=== PATIENT | female | born 1985 | race African-American/Black ===

== ENCOUNTER 2016-10-06 09:42 | Emergency (ER) | payer OTHER ==
[~2016-10-06] VITALS: Ht 157.5 cm; Wt 74.8 kg
[~2016-10-06 09:42] MED LIST: ACETAMINOPHEN-1 EAC1 PO; ADDERALL 20 MG20 M1 PO; AMBIEN 5 MG TABL5 M1 PO; BACTRIM DS TAB1 EACH PO; CLARINEX-D 121 EACH PO; CLEOCIN HCL150 MG PO; CLEOCIN HCL300 MG PO; DELTASONE20 MG PO; DIPHENHIST50 MG PO; FLONASE 0.05%50 MCG NASAL; HYDROCHLOROTHIA25 M1 PO; HYDROCHLOROTHIA25 M2 PO; LEVAQUIN 500 M500 M6 PO; LEVAQUIN 500 M500 MG PO; LISINOPRIL20 MG PO; LYRICA 75 MG CA75 MG PO; MEDROLDOSEPACK PO; NAPROSYN500 MG PO; NEURONTIN 300300 M1 PO; NEURONTIN600 MG PO; NORCO 5-325 TA1 EACH PO; PERCOCET 5-3251 EACH PO; PRILOSEC 20 MG20 MG PO; TRAMADOL 50 MG50 MG PO; ZOFRAN ODT4 MG PO; ZOLOFT 50 MG TA50 M1 PO; ZOLOFT50 MG PO; ZPAK PO
[2016-10-06 09:50] VITALS: BP 112/52
[2016-10-06] MEDS ORDERED: SUBOXONE 2 MG-1 EAC1 BUCCAL (10:19)
[2016-10-06] MEDS ORDERED: IBUPROFEN 600600 M1 PO (10:27)
[2016-10-06] MEDS ORDERED: FLONASE 0.05%50 MCG NASAL (10:31)
[2016-10-06] MEDS ORDERED: CLARITIN10 MG PO (10:31)
== END 2016-10-06 10:37 | disposition home or self-care (01) ==
LOC: ER 09:42
DX: J30.2 Other seasonal allergic rhinitis (principal); J32.8 Other chronic sinusitis; I10 Essential (primary) hypertension; M32.9 Systemic lupus erythematosus, unspecified; F17.210 Nicotine dependence, cigarettes, uncomplicated; Z88.0 Allergy status to penicillin

== ENCOUNTER 2016-10-24 09:02 | Emergency (ER) | payer OTHER ==
[~2016-10-24] VITALS: Ht 160 cm; Wt 77.1 kg
[~2016-10-24 09:02] MED LIST changes: +CLARITIN10 MG PO; +IBUPROFEN 600600 M1 PO; +SUBOXONE 2 MG-1 EAC1 BUCCAL
[2016-10-24 09:05] VITALS: BP 116/80
[2016-10-24] MEDS ORDERED: PEPCID20 MG PO (09:28)
[2016-10-24] MEDS ORDERED: ELIMITE60 GM TP (09:28)
== END 2016-10-24 09:36 | disposition home or self-care (01) ==
LOC: ER 09:02
DX: L29.9 Pruritus, unspecified (principal); I10 Essential (primary) hypertension; M32.9 Systemic lupus erythematosus, unspecified; F17.210 Nicotine dependence, cigarettes, uncomplicated; Z88.0 Allergy status to penicillin

== ENCOUNTER 2016-12-27 02:43 | Emergency (ER) | payer OTHER ==
[~2016-12-27] VITALS: Ht 157.5 cm; Wt 77.1 kg
[~2016-12-27 02:43] MED LIST changes: +ELIMITE60 GM TP; +PEPCID20 MG PO
[2016-12-27] MEDS ORDERED: LYRICA 50 MG50 MG (02:56)
[2016-12-27] MEDS ORDERED: APAP500 PO (02:57)
[2016-12-27] MEDS ORDERED: OMEPRAZOLE20 M2 PO (02:58)
[2016-12-27] MEDS ORDERED: CELEBREX50 MG (02:58)
[2016-12-27 03:37] LABS: URINE BILIRUBIN NEGATIVE (Negative); URINE BLOOD TRACE (Negative); URINE COLOR YELLOW; URINE GLUCOSE-RANDOM* NEGATIVE (Negative); URINE KETONES NEGATIVE (Negative); URINE LEUKOCYTES-REFLEX NEGATIVE (Negative); URINE PROTEIN (DIPSTICK) NEGATIVE (Negative); URINE UROBILINOGEN 0.2 E.U./dl (0.2-1.0)
[2016-12-27 04:07] LABS: ABSOLUTE NEUTROPHILS 3.8 thou/uL (1.4-8.2); BASOPHILS 0.8 % (0.0-2.0); EOSINOPHILS 0.8 % (0.0-3.0); HEMOGLOBIN 11.1 gm/dL (12.0-15.0); LYMPHOCYTES 45.8 % (24.0-44.0); MCH 29.1 pg (26.0-34.0); MCHC 33.6 g/dL (28.0-37.0); MCV 86.6 fL (80.0-100.0); MONOCYTES 6.4 % (1.0-8.0); PLATELET COUNT 350 thou/uL (150-400); POLYS 46.2 % (36.0-66.0); RBC 3.82 mil/uL (4.20-5.00); RDW 15.8 % (10.5-14.5); WBC 8.3 thou/uL (4.0-11.0)
[2016-12-27 04:09] LABS: MANUAL DIFF NO
[2016-12-27 04:13] LABS: ANION GAP 16 mmol/L (7-16); BUN 16 mg/dL (7-18); CALCIUM 9.8 mg/dL (8.5-10.1); CHLORIDE 103 mmol/L (98-107); CO2 20 mmol/L (21-32); CREATININE 1.2 mg/dL (0.6-1.0); GLUCOSE 103 mg/dL (74-106); POTASSIUM 3.6 mmol/L (3.5-5.1); SODIUM 139 mmol/L (136-145)
[2016-12-27 04:20] LABS: ALBUMIN 4.4 g/dL (3.4-5.0); ALKALINE PHOSPHATASE 71 U/L (46-116); DIRECT BILIRUBIN < 0.1 mg/dL (<0.1-0.3); SGOT 19 U/L (15-37); SGPT 30 U/L (30-65); TOTAL BILIRUBIN 0.4 mg/dL (<0.1-1.0); TOTAL PROTEIN 8.5 g/dL (6.4-8.2)
[2016-12-27 05:32] VITALS: BP 127/86
[2016-12-27] MEDS ORDERED: NORCO 5-325 TA1 EACH PO (07:07)
[2016-12-28 17:08] LABS: CHLAMYDIA TRACHOMATIS-PCR Negative (Negative); NEISSERIA GONORRHEA-PCR Negative (Negative)
== END 2016-12-27 07:45 | disposition home or self-care (01) ==
LOC: ER 02:43
PROVIDERS: Emergency Medicine
DX: R30.0 Dysuria (principal); R10.9 Unspecified abdominal pain; I10 Essential (primary) hypertension; M32.9 Systemic lupus erythematosus, unspecified; F17.210 Nicotine dependence, cigarettes, uncomplicated; Z87.448 Personal history of other diseases of urinary system; Z88.0 Allergy status to penicillin

== ENCOUNTER 2017-10-07 15:02 | Emergency (ER) | payer OTHER ==
[~2017-10-07] VITALS: Ht 157.5 cm; Wt 68.0 kg
[~2017-10-07 15:02] MED LIST changes: +APAP500 PO; +CELEBREX50 MG; +LYRICA 50 MG50 MG; +OMEPRAZOLE20 M2 PO
[2017-10-07 15:19] LABS: URINE BILIRUBIN NEGATIVE (Negative); URINE BLOOD NEGATIVE (Negative); URINE CLARITY CLEAR; URINE COLOR YELLOW; URINE GLUCOSE-RANDOM* NEGATIVE (Negative); URINE KETONES NEGATIVE (Negative); URINE LEUKOCYTES-REFLEX 1+ (Negative); URINE NITRITE-REFLEX NEGATIVE (Negative); URINE PROTEIN (DIPSTICK) NEGATIVE (Negative); URINE SPECIFIC GRAVITY 1.015 (1.005-1.035); URINE UROBILINOGEN 0.2 E.U./dl (0.2-1.0)
[2017-10-07 15:30] LABS: BACTERIA-REFLEX 1-9 Few /HPF (None Seen); CASTS None Seen /LPF (None Seen); CRYSTALS None Seen /LPF (None Seen); SQUAMOUS 4-10 Moderate /LPF (0-3); URINE RBC None Seen /HPF (0-2); URINE WBC-REFLEX 0-5 Rare /HPF (0-5)
[2017-10-07 15:49] LABS: ABSOLUTE NEUTROPHILS 3.1 thou/uL (1.4-8.2); BASOPHILS 1.1 % (0.0-2.0); EOSINOPHILS 2.4 % (0.0-3.0); HEMATOCRIT 32.9 % (37.0-47.0); HEMOGLOBIN 10.9 gm/dL (12.0-15.0); LYMPHOCYTES 28.5 % (24.0-44.0); MCHC 33.3 g/dL (28.0-37.0); MONOCYTES 8.5 % (1.0-8.0); PLATELET COUNT 226 thou/uL (150-400); POLYS 59.5 % (36.0-66.0); RBC 3.91 mil/uL (4.20-5.00); RDW 14.7 % (10.5-14.5); WBC 5.2 thou/uL (4.0-11.0)
[2017-10-07 15:57] LABS: CALCIUM 8.8 mg/dL (8.5-10.1); CREATININE 1.4 mg/dL (0.6-1.0); POTASSIUM 3.8 mmol/L (3.5-5.1)
[2017-10-07] MEDS ORDERED: MACROBID 100 M100 M1 PO (16:33)
[2017-10-07] MEDS ORDERED: IBUPROFEN 600600 M1 PO (16:34)
[2017-10-07 17:12] VITALS: BP 108/70
== END 2017-10-07 17:13 | disposition home or self-care (01) ==
LOC: ER 15:02
PROVIDERS: Emergency Medicine; Nurse Practitioner
DX: N39.0 Urinary tract infection, site not specified (principal); M32.9 Systemic lupus erythematosus, unspecified; I10 Essential (primary) hypertension; F17.210 Nicotine dependence, cigarettes, uncomplicated; Z88.0 Allergy status to penicillin

== ENCOUNTER 2017-10-29 21:45 | Emergency (ER) | payer OTHER ==
[~2017-10-29] VITALS: Ht 160 cm; Wt 74.8 kg
[~2017-10-29 21:45] MED LIST changes: +MACROBID 100 M100 M1 PO
[2017-10-29 22:08] LABS: URINE BLOOD TRACE (Negative); URINE CLARITY SL CLOUDY; URINE COLOR YELLOW; URINE GLUCOSE-RANDOM* NEGATIVE (Negative); URINE KETONES TRACE (Negative); URINE NITRITE-REFLEX NEGATIVE (Negative); URINE PROTEIN (DIPSTICK) 1+ (Negative); URINE SPECIFIC GRAVITY >= 1.030 (1.005-1.035); URINE UROBILINOGEN 0.2 E.U./dl (0.2-1.0)
[2017-10-29 22:09] LABS: ICTOTEST (BILI CONFIRMATORY) Negative (Negative); URINE BILIRUBIN NEGATIVE (Negative); URINE LEUKOCYTES-REFLEX 2+ (Negative)
[2017-10-29 22:17] LABS: CASTS None Seen /LPF (None Seen); CRYSTALS None Seen /LPF (None Seen); SQUAMOUS 4-10 Moderate /LPF (0-3)
[2017-10-29 22:18] LABS: URINE RBC 0-2 Rare /HPF (0-2); URINE WBC-REFLEX 6-15 Few /HPF (0-5); YEAST-REFLEX Present (None Seen)
[2017-10-29 22:56] LABS: AMP/METHAMP POSITIVE (Negative); BARBITURATES Negative (Negative); BENZODIAZEPINES Negative (Negative); COCAINE Negative (Negative); METHADONE Negative (Negative); OPIATES POSITIVE (Negative); PCP Negative (Negative)
[2017-10-29 23:39] LABS: ABSOLUTE NEUTROPHILS 3.6 thou/uL (1.4-8.2); BASOPHILS 0.9 % (0.0-2.0); EOSINOPHILS 0.8 % (0.0-3.0); HEMATOCRIT 41.5 % (37.0-47.0); HEMOGLOBIN 13.7 gm/dL (12.0-15.0); LYMPHOCYTES 42.2 % (24.0-44.0); MCH 27.7 pg (26.0-34.0); MCV 83.9 fL (80.0-100.0); PLATELET COUNT 332 thou/uL (150-400); POLYS 51.1 % (36.0-66.0); RBC 4.95 mil/uL (4.20-5.00); RDW 15.5 % (10.5-14.5); WBC 7.1 thou/uL (4.0-11.0)
[2017-10-29] MEDS ORDERED: NAPROSYN500 MG PO (23:49)
[2017-10-29] MEDS ORDERED: MACROBID 100 M100 M1 PO (23:49)
[2017-10-29 23:50] LABS: ANION GAP 14 mmol/L (7-16); BUN 38 mg/dL (7-18); CALCIUM 9.2 mg/dL (8.5-10.1); CHLORIDE 99 mmol/L (98-107); CO2 21 mmol/L (21-32); GLUCOSE 83 mg/dL (74-106); POTASSIUM 4.2 mmol/L (3.5-5.1); SODIUM 134 mmol/L (136-145)
[2017-10-29 23:55] LABS: MAGNESIUM 2.5 mg/dL (1.8-2.4); PHOSPHORUS 4.6 mg/dL (2.5-4.9)
[2017-10-29 23:56] LABS: ALBUMIN 4.2 g/dL (3.4-5.0); LIPASE 126 U/L (73-393); SGOT 21 U/L (15-37); SGPT 22 U/L (30-65); TOTAL BILIRUBIN 0.3 mg/dL (<0.1-1.0); TOTAL PROTEIN 8.5 g/dL (6.4-8.2)
[2017-10-30 00:07] VITALS: BP 93/56
== END 2017-10-30 00:08 | disposition home or self-care (01) ==
LOC: ER 21:45
PROVIDERS: Emergency Medicine; Physician Assistant
DX: N39.0 Urinary tract infection, site not specified (principal); R10.9 Unspecified abdominal pain; M32.9 Systemic lupus erythematosus, unspecified; M79.1 Myalgia; I10 Essential (primary) hypertension; N19 Unspecified kidney failure; F17.210 Nicotine dependence, cigarettes, uncomplicated; Z88.0 Allergy status to penicillin

== ENCOUNTER 2017-12-11 10:22 | Emergency (ER) | payer OTHER ==
[~2017-12-11] VITALS: Ht 167.6 cm; Wt 79.4 kg
[2017-12-11 10:53] LABS: URINE BILIRUBIN NEGATIVE (Negative); URINE BLOOD NEGATIVE (Negative); URINE CLARITY CLOUDY; URINE COLOR YELLOW; URINE GLUCOSE-RANDOM* NEGATIVE (Negative); URINE KETONES NEGATIVE (Negative); URINE LEUKOCYTES-REFLEX TRACE (Negative); URINE NITRITE-REFLEX NEGATIVE (Negative); URINE PROTEIN (DIPSTICK) TRACE (Negative); URINE SPECIFIC GRAVITY >= 1.030 (1.005-1.035); URINE UROBILINOGEN 0.2 E.U./dl (0.2-1.0)
[2017-12-11 11:22] LABS: AMP/METHAMP POSITIVE (Negative); BARBITURATES Negative (Negative); BENZODIAZEPINES Negative (Negative); COCAINE Negative (Negative); METHADONE Negative (Negative); OPIATES POSITIVE (Negative); PCP Negative (Negative)
[2017-12-11 11:31] LABS: ABSOLUTE NEUTROPHILS 6.2 thou/uL (1.4-8.2); BASOPHILS 0.7 % (0.0-2.0); EOSINOPHILS 0.9 % (0.0-3.0); HEMATOCRIT 33.7 % (37.0-47.0); HEMOGLOBIN 11.4 gm/dL (12.0-15.0); LYMPHOCYTES 33.2 % (24.0-44.0); MCH 28.9 pg (26.0-34.0); MCHC 33.8 g/dL (28.0-37.0); MCV 85.4 fL (80.0-100.0); MONOCYTES 4.7 % (1.0-8.0); PLATELET COUNT 319 thou/uL (150-400); POLYS 60.5 % (36.0-66.0); RBC 3.94 mil/uL (4.20-5.00); RDW 17.8 % (10.5-14.5); WBC 10.2 thou/uL (4.0-11.0)
[2017-12-11 11:43] LABS: POTASSIUM 4.1 mmol/L (3.5-5.1)
[2017-12-11 11:44] LABS: CREATININE 1.1 mg/dL (0.6-1.0)
[2017-12-11] MEDS ORDERED: ELIMITE60 GM TOP (13:01)
[2017-12-11] MEDS ORDERED: PREDNISONE 20 M20 MG PO (13:01)
[2017-12-11 13:10] VITALS: BP 106/70
[2017-12-12 14:10] LABS: NEISSERIA GONORRHEA-PCR Negative (Negative)
== END 2017-12-11 13:10 | disposition home or self-care (01) ==
LOC: ER 10:22
PROVIDERS: Physician Assistant
DX: R21 Rash and other nonspecific skin eruption (principal); F17.210 Nicotine dependence, cigarettes, uncomplicated; I10 Essential (primary) hypertension; M32.9 Systemic lupus erythematosus, unspecified; R11.0 Nausea; F41.9 Anxiety disorder, unspecified; Z88.0 Allergy status to penicillin

== ENCOUNTER 2019-06-24 12:00 | Emergency (ER) | payer OTHER ==
[~2019-06-24] VITALS: Ht 157.5 cm; Wt 74.8 kg
[~2019-06-24 12:00] MED LIST changes: +ELIMITE60 GM TOP; +PREDNISONE 20 M20 MG PO
[2019-06-24 12:52] LABS: URINE BILIRUBIN NEGATIVE (Negative); URINE BLOOD TRACE (Negative); URINE CLARITY SL CLOUDY; URINE COLOR YELLOW; URINE GLUCOSE-RANDOM* NEGATIVE (Negative); URINE KETONES NEGATIVE (Negative); URINE LEUKOCYTES-REFLEX NEGATIVE (Negative); URINE NITRITE-REFLEX NEGATIVE (Negative); URINE PROTEIN (DIPSTICK) NEGATIVE (Negative); URINE SPECIFIC GRAVITY <= 1.005 (1.005-1.035); URINE UROBILINOGEN 0.2 E.U./dl (0.2-1.0)
[2019-06-24] MEDS ORDERED: KEFLEX500 M1 PO (13:24)
[2019-06-24] MEDS ORDERED: ONDANSETRON HCL4 M2 PO (13:25)
[2019-06-24] MEDS ORDERED: GABAPENTIN800 M1 PO (13:25)
[2019-06-24] MEDS ORDERED: ZOLPIDEM TARTRA10 MG PO (13:25)
[2019-06-24 13:37] LABS: ABSOLUTE NEUTROPHILS 4.9 thou/uL (1.4-8.2); BASOPHILS 0.6 % (0.0-2.0); EOSINOPHILS 0.4 % (0.0-3.0); HEMATOCRIT 42.6 % (37.0-47.0); LYMPHOCYTES 27.3 % (24.0-44.0); MCHC 32.7 g/dL (28.0-37.0); MCV 85.6 fL (80.0-100.0); MONOCYTES 6.4 % (1.0-8.0); PLATELET COUNT 326 thou/uL (150-400); POLYS 65.3 % (36.0-66.0); RBC 4.98 mil/uL (4.20-5.00); RDW 13.9 % (10.5-14.5); WBC 7.5 thou/uL (4.0-11.0)
[2019-06-24 13:44] LABS: CALCIUM 9.3 mg/dL (8.5-10.1)
[2019-06-24 15:50] VITALS: BP 157/103
== END 2019-06-24 15:50 | disposition home or self-care (01) ==
LOC: ER 12:00
PROVIDERS: Emergency Medicine; Nurse Practitioner Family
DX: O26.891 Other specified pregnancy related conditions, first trimester (principal); R10.30 Lower abdominal pain, unspecified; O99.331 Smoking (tobacco) complicating pregnancy, first trimester; F17.210 Nicotine dependence, cigarettes, uncomplicated; I10 Essential (primary) hypertension; Z3A.01 Less than 8 weeks gestation of pregnancy